=== PATIENT | female | born 1970 | race Caucasian/White ===

== ENCOUNTER 2017-09-30 10:34 | Outpatient (CLI) | payer OTHER | END 2017-09-30 10:44 | disposition home or self-care (01) | LOC: LAB 10:34 | DX: D89.0 Polyclonal hypergammaglobulinemia (principal); C49.11 Malignant neoplasm of connective and soft tissue of right upper limb, including shoulder; Z85.831 Personal history of malignant neoplasm of soft tissue; D51.1 Vitamin B12 deficiency anemia due to selective vitamin B12 malabsorption with proteinuria; D51.3 Other dietary vitamin B12 deficiency anemia; I10 Essential (primary) hypertension; E08.65 Diabetes mellitus due to underlying condition with hyperglycemia; E78.2 Mixed hyperlipidemia; E03.8 Other specified hypothyroidism; I73.9 Peripheral vascular disease, unspecified; I87.2 Venous insufficiency (chronic) (peripheral); M79.1 Myalgia; E88.81 Metabolic syndrome and other insulin resistance; D50.8 Other iron deficiency anemias; D51.8 Other vitamin B12 deficiency anemias ==

== ENCOUNTER → 2018-03-23 13:15 | Outpatient (CLI) | payer OTHER | END | disposition home or self-care (01) | LOC: LAB 13:15 | DX: D64.89 Other specified anemias (principal); F60.3 Borderline personality disorder; R22.9 Localized swelling, mass and lump, unspecified; N95.9 Unspecified menopausal and perimenopausal disorder; G47.33 Obstructive sleep apnea (adult) (pediatric); D89.0 Polyclonal hypergammaglobulinemia; E78.2 Mixed hyperlipidemia; N20.0 Calculus of kidney; M54.2 Cervicalgia; L98.8 Other specified disorders of the skin and subcutaneous tissue ==

== ENCOUNTER 2018-07-21 09:14 | Outpatient (CLI) | payer OTHER | END 2018-07-21 10:29 | disposition home or self-care (01) | LOC: LAB 09:14 | DX: D89.0 Polyclonal hypergammaglobulinemia (principal); C49.11 Malignant neoplasm of connective and soft tissue of right upper limb, including shoulder; Z85.831 Personal history of malignant neoplasm of soft tissue; D51.1 Vitamin B12 deficiency anemia due to selective vitamin B12 malabsorption with proteinuria; D51.3 Other dietary vitamin B12 deficiency anemia; I10 Essential (primary) hypertension; E08.65 Diabetes mellitus due to underlying condition with hyperglycemia; E78.2 Mixed hyperlipidemia; E03.8 Other specified hypothyroidism; I73.89 Other specified peripheral vascular diseases; I87.2 Venous insufficiency (chronic) (peripheral); M79.18 Myalgia, other site; E88.81 Metabolic syndrome and other insulin resistance; D50.8 Other iron deficiency anemias; D51.8 Other vitamin B12 deficiency anemias; D47.2 Monoclonal gammopathy; E11.65 Type 2 diabetes mellitus with hyperglycemia; Z68.42 Body mass index [BMI] 45.0-49.9, adult; N18.3 Chronic kidney disease, stage 3 (moderate) ==

== ENCOUNTER 2018-10-19 09:19 | Outpatient (CLI) | payer OTHER | END 2018-10-19 09:33 | disposition home or self-care (01) | LOC: LAB 09:19 | DX: E03.8 Other specified hypothyroidism (principal); E11.65 Type 2 diabetes mellitus with hyperglycemia; E88.81 Metabolic syndrome and other insulin resistance; E78.2 Mixed hyperlipidemia; N18.3 Chronic kidney disease, stage 3 (moderate); Z68.42 Body mass index [BMI] 45.0-49.9, adult; I10 Essential (primary) hypertension; I73.89 Other specified peripheral vascular diseases; R94.5 Abnormal results of liver function studies; R77.1 Abnormality of globulin; D64.89 Other specified anemias; M54.2 Cervicalgia; E55.9 Vitamin D deficiency, unspecified; R22.9 Localized swelling, mass and lump, unspecified; N95.8 Other specified menopausal and perimenopausal disorders; E66.01 Morbid (severe) obesity due to excess calories; G47.33 Obstructive sleep apnea (adult) (pediatric); E78.1 Pure hyperglyceridemia; M75.100 Unspecified rotator cuff tear or rupture of unspecified shoulder, not specified as traumatic ==

== ENCOUNTER 2019-01-12 09:20 | Outpatient (CLI) | payer OTHER | END 2019-01-12 09:24 | disposition home or self-care (01) | LOC: LAB 09:20 | DX: E11.65 Type 2 diabetes mellitus with hyperglycemia (principal); N18.1 Chronic kidney disease, stage 1; E78.2 Mixed hyperlipidemia; E03.8 Other specified hypothyroidism; E88.81 Metabolic syndrome and other insulin resistance; I73.89 Other specified peripheral vascular diseases; R94.5 Abnormal results of liver function studies ==

== ENCOUNTER 2019-03-22 09:30 | Outpatient (CLI) | payer OTHER | END 2019-03-22 09:37 | disposition home or self-care (01) | LOC: LAB 09:30 | DX: D89.0 Polyclonal hypergammaglobulinemia (principal); C49.11 Malignant neoplasm of connective and soft tissue of right upper limb, including shoulder; Z85.831 Personal history of malignant neoplasm of soft tissue; D51.1 Vitamin B12 deficiency anemia due to selective vitamin B12 malabsorption with proteinuria; D51.3 Other dietary vitamin B12 deficiency anemia; I10 Essential (primary) hypertension; E08.65 Diabetes mellitus due to underlying condition with hyperglycemia; E78.2 Mixed hyperlipidemia; E03.8 Other specified hypothyroidism; I73.89 Other specified peripheral vascular diseases; I87.2 Venous insufficiency (chronic) (peripheral); M79.18 Myalgia, other site; E88.81 Metabolic syndrome and other insulin resistance; D50.8 Other iron deficiency anemias; D51.8 Other vitamin B12 deficiency anemias; K90.89 Other intestinal malabsorption; D64.89 Other specified anemias; R31.1 Benign essential microscopic hematuria; R80.8 Other proteinuria ==

== ENCOUNTER 2019-05-31 08:53 | Outpatient (CLI) | payer OTHER | END 2019-05-31 09:00 | disposition home or self-care (01) | LOC: LAB 08:53 | DX: N30.00 Acute cystitis without hematuria (principal); D64.89 Other specified anemias; M54.2 Cervicalgia; K83.5 Biliary cyst; E55.9 Vitamin D deficiency, unspecified; R22.9 Localized swelling, mass and lump, unspecified; G47.33 Obstructive sleep apnea (adult) (pediatric); D89.0 Polyclonal hypergammaglobulinemia; E78.1 Pure hyperglyceridemia; M75.100 Unspecified rotator cuff tear or rupture of unspecified shoulder, not specified as traumatic; E11.65 Type 2 diabetes mellitus with hyperglycemia; N18.3 Chronic kidney disease, stage 3 (moderate); E78.2 Mixed hyperlipidemia; E03.8 Other specified hypothyroidism; E88.81 Metabolic syndrome and other insulin resistance; R94.5 Abnormal results of liver function studies; K76.0 Fatty (change of) liver, not elsewhere classified; R16.0 Hepatomegaly, not elsewhere classified ==

== ENCOUNTER → 2019-07-07 | Outpatient (CLI) | payer OTHER | END | disposition home or self-care (01) | LOC: LAB 07:45 | DX: D64.89 Other specified anemias (principal); E79.0 Hyperuricemia without signs of inflammatory arthritis and tophaceous disease; I10 Essential (primary) hypertension; R31.1 Benign essential microscopic hematuria; E78.2 Mixed hyperlipidemia ==